=== PATIENT | male | born 1990 | race Caucasian/White ===

== ENCOUNTER 2021-07-25 14:21 | Emergency (ER) | payer SELFPAY ==
--- NOTE | 2021-07-25 17:26 | EDPHYS ---
Physician Documentation [facility] Name: Gilberto Krause Age: 31 yrs Sex: Male : 1990 Arrival Date: 07/25/2021 Time: 14:23 Bed 12 Private MD: ED Physician Jake Beckett HPI: 07/25 17:22 This 31 yrs old Male presents to ER via Wheelchair with complaints of Pelvic Pain, jr8 Groin Pain. 17:23 Associated signs and symptoms: The patient has no apparent associated signs or jr8 symptoms. Severity of symptoms: At their worst the symptoms were mild, in the emergency department the symptoms have improved. The patient has not experienced similar symptoms in the past. The patient has not recently seen a physician. This is a 31-year-old male patient that was lifting a heavy log today that felt a pop to his right groin region. Stated that he had a lump since then that has now reduced on its own but still has pain.. Historical: - Allergies: 14:54 PENICILLINS; [facility] - Home Meds: 14:54 None [Active]; [facility] - PMHx: 14:54 None; [facility] - Immunization history:: Adult Immunizations unknown. - Social history:: Smoking status: Patient reports the use of cigarette tobacco products, denies chronic smoking, but will smoke occasionally, Patient uses street drugs, marijuana. ROS: 17:23 Eyes: Negative for injury, pain, redness, and discharge, ENT: Negative for injury, jr8 pain, and discharge, Neck: Negative for injury, pain, and swelling, Cardiovascular: Negative for chest pain, palpitations, and edema, Respiratory: Negative for shortness of breath, cough, wheezing, and pleuritic chest pain, Back: Negative for injury and pain, : Negative for injury, bleeding, discharge, and swelling, or urinary symptoms MS/Extremity: Negative for injury and deformity, Skin: Negative for injury, rash, and discoloration, Neuro: Negative for headache, weakness, numbness, tingling, and seizure. 17:23 Abdomen/GI: Positive for abdominal pain. Exam: 17:23 Constitutional: This is a well developed, well nourished patient who is awake, alert, jr8 and in no acute distress. Cardiovascular: Regular rate and rhythm with a normal S1 and S2. No gallops, murmurs, or rubs. Normal PMI, no JVD. No pulse deficits. Respiratory: Lungs have equal breath sounds bilaterally, clear to auscultation and percussion. No rales, rhonchi or wheezes noted. No increased work of breathing, no retractions or nasal flaring. Back: No spinal tenderness. No costovertebral tenderness. Full range of motion. Skin: Warm, dry with normal turgor. Normal color with no rashes, no lesions, and no evidence of cellulitis. MS/ Extremity: Pulses equal, no cyanosis. Neurovascular intact. Full, normal range of motion. Neuro: Awake and alert, GCS 15, oriented to person, place, time, and situation. Motor strength 5/5 in all extremities. Sensory grossly intact. 17:23 Abdomen/GI: Inspection: abdomen appears normal, Bowel sounds: active, all quadrants, Palpation: abdomen is soft and non-tender, in all quadrants, Hernia: noted in the right inguinal area, incarceration, is not appreciated, tenderness, that is mild. Vital Signs: 14:48 BP 113 / 67; Pulse 72; Resp 17; Temp 97.6; Pulse Ox 100% ; Weight 56.7 kg; Height 5 ft. jh6 2 in. (157.48 cm); Pain 7/10; 17:36 BP 109 / 63; Pulse 56; Resp 18; Pulse Ox 98% on R/A; ww 14:48 Body Mass Index 22.86 (56.70 kg, 157.48 cm) jh6 Nikole Coma Score: 17:36 Eye Response: spontaneous(4). Verbal Response: oriented(5). Motor Response: obeys ww commands(6). Total: 15. MDM: 16:55 Patient medically screened. jr8 17:23 Data reviewed: vital signs, nurses notes. Data interpreted: Pulse oximetry: on room air jr8 is 100 %. Interpretation: normal. Counseling: I had a detailed discussion with the patient and/or guardian regarding: the historical points, exam findings, and any diagnostic results supporting the discharge/admit diagnosis, the need for outpatient follow up, a general surgeon, to return to the emergency department if symptoms worsen or persist or if there are any questions or concerns that arise at home. ED course: Discussed with patient that he spontaneously reduced the hernia. No outpouching with pressure standing at this time. No signs of incarceration. Discussed with him that he needs to do light activities for the next week and needs to follow-up with general surgery. If it were to come out again and not self reduced to come back for immediate follow-up to the emergency room. Patient good with this at this time.. Administered Medications: No medications were administered Disposition: 17:40 Co-signature as Attending Physician, Jake Beckett MD I agree with the assessment and rn plan of care. Attestation: The patient's history, exam findings, diagnostics, and a summary of any interventions or procedures was reviewed in detail with Hermilo ARMENTA. Disposition Summary: 07/25/21 17:26 Discharge Ordered Location: Home jr8 Problem: new jr8 Symptoms: have improved jr8 Condition: Stable jr8 Diagnosis - Unilateral inguinal hernia, without obstruction or gangrene jr8 Followup: jr8 - With: Hemant Polanco MD - When: 7 - 10 days - Reason: Recheck today's complaints, Continuance of care, Re-evaluation by your physician Discharge Instructions: - Discharge Summary Sheet jr8 - Hernia, Adult jr8 Forms: - Medication Reconciliation Form jr8 - Thank You Letter jr8 - Antibiotic Education jr8 - Prescription Opioid Use jr8 Signatures: Jake Beckett MD MD rn Roszak, Josh, PA PA jr8 Sade Luis RN RN jh6 Ana López RN RN eo2 Corrections: (The following items were deleted from the chart) 14:54 14:54 Allergies: No Known Allergies; [place] [id number]
--- NOTE | 2021-07-25 17:26 | ER ---
Nurse's Notes [facility] Name: Gilberto Krause Age: 31 yrs Sex: Male : 1990 Arrival Date: 07/25/2021 Time: 14:23 Bed 12 Private MD: Diagnosis: Unilateral inguinal hernia, without obstruction or gangrene Presentation: 07/25 14:48 Chief complaint: Patient states: pt states that he was picking up a large log and felt jh6 a tear in abd. stated that he had a knot the size of a golf ball sicking out. states that he was able to poke it back in but pain is worse with movement. Coronavirus screen: Vaccine status: Patient reports being unvaccinated. Ebola Screen: No symptoms or risks identified at this time. Initial Sepsis Screen: Does the patient meet any 2 criteria? No. Patient's initial sepsis screen is negative. Does the patient have a suspected source of infection? No. Patient's initial sepsis screen is negative. Risk Assessment: Do you want to hurt yourself or someone else? Patient reports no desire to harm self or others. Onset of symptoms was 2020. 14:48 Method Of Arrival: Wheelchair [facility] 14:48 Acuity: GERDA 3 jh6 Triage Assessment: 14:54 General: Appears in no apparent distress. uncomfortable, Behavior is calm, cooperative. jh6 Pain: Complains of pain in right lower quadrant. Historical: - Allergies: 14:54 PENICILLINS; [facility] - Home Meds: 14:54 None [Active]; [facility] - PMHx: 14:54 None; [facility] - Immunization history:: Adult Immunizations unknown. - Social history:: Smoking status: Patient reports the use of cigarette tobacco products, denies chronic smoking, but will smoke occasionally, Patient uses street drugs, marijuana. Screenin:01 Abuse screen: Denies threats or abuse. Nutritional screening: No deficits noted. eo2 Tuberculosis screening: No symptoms or risk factors identified. Fall Risk None identified. Assessment: 16:52 General: Appears in no apparent distress. uncomfortable, Behavior is calm, cooperative. eo2 Pain: Complains of pain in right groin Pain began suddenly, after lifting a log at work. Neuro: No deficits noted. Denies. Cardiovascular: No deficits noted. Respiratory: Reports shortness of breath with pain/movement Breath sounds are clear bilaterally. 16:52 : Reports burning with urination, pt reports a bulge to right groin after lifting a eo2 log at work, states it reduced on its own on his way to ER, reports ongoing pain at that site. Pt reports burning with urination and pressure after symptom onset, reports this has resolved. 16:59 Musculoskeletal: No deficits noted. Denies pt denies numbness/tingling to RLE. eo2 Vital Signs: 14:48 BP 113 / 67; Pulse 72; Resp 17; Temp 97.6; Pulse Ox 100% ; Weight 56.7 kg; Height 5 ft. jh6 2 in. (157.48 cm); Pain 7/10; 17:36 BP 109 / 63; Pulse 56; Resp 18; Pulse Ox 98% on R/A; ww 14:48 Body Mass Index 22.86 (56.70 kg, 157.48 cm) jh6 Fleming Coma Score: 17:36 Eye Response: spontaneous(4). Verbal Response: oriented(5). Motor Response: obeys ww commands(6). Total: 15. ED Course: 14:23 Patient arrived in ED. as 14:54 Triage completed. jh6 14:55 Arm band placed on right wrist. 6 16:42 Ana López, JOEL is Primary Nurse. eo2 16:55 Hermilo Hernandez PA is PHCP. jr8 16:55 Jake Beckett MD is Attending Physician. jr8 17:01 Patient has correct armband on for positive identification. Call light in reach. Door eo2 closed. 17:01 No provider procedures requiring assistance completed. Patient did not have IV access eo2 during this emergency room visit. 17:25 Hemant Polanco MD is Referral Physician. jr8 Administered Medications: No medications were administered Outcome: 17:26 Discharge ordered by . jr8 17:36 Discharged to home ambulatory. ww 17:36 Condition: stable 17:36 Discharge instructions given to patient, Instructed on discharge instructions, follow up and referral plans. safety practices, Demonstrated understanding of instructions, follow-up care. 17:37 Patient left the ED. ww Signatures: Geraldine Aguilar Josh, PA PA 8 Sade Luis RN RN 6 Leonor Patricio RN Ana Black RN RN eo2 Corrections: (The following items were deleted from the chart) 14:54 14:54 Allergies: No Known Allergies; jh6 jh6 17:00 16:52 : Reports burning with urination, pt reports a bulge to right groin after eo2 lifting a log at work, states it reduced on its own on his way to ER, reports ongoing pain. Pt reports burning with urination after symptom onset, reports this has resolved eo2
[2021-07-25 18:05] VITALS: TEMP 97.6
[2021-07-25 18:07] VITALS: BP 109/63; O2SAT 98
== END 2021-07-25 17:37 | disposition home or self-care (01) ==
LOC: ER 14:21
DX: K40.90 Unilateral inguinal hernia, without obstruction or gangrene, not specified as recurrent (principal); F17.210 Nicotine dependence, cigarettes, uncomplicated; Z88.0 Allergy status to penicillin
CPT/HCPCS: 99281